=== PATIENT | male | born 1980 | race Caucasian/White ===

== ENCOUNTER → 2021-09-06 | Outpatient (CLI) | payer BC ==
[2021-09-06 17:49] LABS: ALBUMIN 4.2 g/dL (3.5-5.0)
[2021-09-06 17:50] LABS: CALCIUM 9.6 mg/dL (8.3-10.5)
[2021-09-06 17:51] LABS: TOTAL PROTEIN 6.8 g/dL (6.4-8.3)
[2021-09-06 17:53] LABS: TOTAL BILIRUBIN 0.5 mg/dL (0.2-1.2)
== END ==
LOC: LAB 10:17
PROVIDERS: Family Medicine
DX: Z13.1 Encounter for screening for diabetes mellitus (principal); Z13.220 Encounter for screening for lipoid disorders; G47.09 Other insomnia